=== PATIENT | female | born 1960 | race Two or more races ===

== ENCOUNTER 2020-01-24 14:33 | Emergency (ER) | payer OTHER ==
[~2020-01-24] VITALS: Ht 157.5 cm; Wt 65.8 kg
[2020-01-24] MEDS ORDERED: DICLOFENAC SODI75 MG PO (17:40)
== END 2020-01-24 17:43 | disposition home or self-care (01) ==
LOC: ER 14:33
DX: K57.92 Diverticulitis of intestine, part unspecified, without perforation or abscess without bleeding (principal)